=== PATIENT | female | born 1960 | race Native Hawaiian/Other Pacific Islander ===

== ENCOUNTER 2016-10-11 10:05 | Outpatient (CLI) | payer BC ==
[~2016-10-11 10:05] MED LIST: HYDR25TA60 PO; LIPITOR40 MG PO; LISI20TA11 PO; SERT50TA PO; SINGULAIR10 MG PO
== END 2016-10-11 19:12 | disposition home or self-care (01) ==
LOC: MAMMO 10:05
DX: Z12.31 Encounter for screening mammogram for malignant neoplasm of breast (principal)
CPT/HCPCS: G0202-TC

== ENCOUNTER 2017-03-10 14:01 | Outpatient (CLI) | payer OTHER | END 2017-03-10 15:05 | disposition home or self-care (01) | LOC: RAD 14:01 | DX: M25.562 Pain in left knee (principal); M25.561 Pain in right knee ==